=== PATIENT | male | born 2000 | race Caucasian/White ===

== ENCOUNTER 2022-11-18 11:32 | Outpatient (CLI) | payer OTHER, SELFPAY ==
--- NOTE | ~2022-11-18 | XR_ITS ---
AP and oblique views of the SI joints CLINICAL HISTORY: Pain FINDINGS: Bilateral SI joints are unremarkable. Bilateral hip joints appear unremarkable. No erosive change. Focal sclerotic lesion in the left iliac bone adjacent to the SI joint probably represents yg ne island. Soft tissues are unremarkable. IMPRESSION: Probable prominent bone island versus other densely sclerotic lesion in the left iliac bone adjacent to the SI joint. No other significant findings. Reviewed, dictated and finalized at location M. IMPRESSION: Probable prominent bone island versus other densely sclerotic lesion in the lef t iliac bone adjacent to the SI joint. No other significant findings.
--- NOTE | ~2022-11-18 | XR_ITS ---
Right foot Technique: AP and lateral standing views were obtained. Clinical History: Pain Findings: No acute fracture or dislocation is seen. Osseous alignment is anatomic. Joint spaces are p reserved without erosive or degenerative change. Soft tissues are unremarkable. Impression: Unremarkable right foot radiographs. Reviewed, dictated and finalized at location . Impression: Unremarkable right foot radiographs.
--- NOTE | ~2022-11-18 | XR_ITS ---
Bilateral Hands Technique: Bilaterally PA, oblique, and lateral views, and ball-catcher's view were obtained. Clinical History: Pain Findings: No acute fracture or dislocation is seen. Osseous alignment is anatomic. Joint spaces are p reserved. Soft tissues are unremarkable. Impression: Unremarkable bilateral hand radiographs. Reviewed, dictated and finalized at location . Impression: Unremarkable bilateral hand radiographs.
--- NOTE | ~2022-11-18 | XR_ITS ---
Cervical Spine: AP, lateral, open-mouth views Clinical History: Pain Findings: There is minimal reversal of the normal cervical lordosis. The vertebral bodies and fur trimmer ior elements appear intact. The intervertebral disc spaces are well maintained. Pre-vertebral soft t issues are unremarkable. Impression: Minimal reversal of the normal cervical lordosis, otherwise unremarkable exam. Reviewed, dictated and finalized at [facility]. Impression: Minimal reversal of the normal cervical lordosis, otherwise unremarkable exam.
--- NOTE | ~2022-11-18 | XR_ITS ---
Left foot Technique: AP and lateral standing views were obtained. Clinical History: Pain Findings: No acute fracture or dislocation is seen. Osseous alignment is anatomic. Joint spaces are p reserved without erosive or degenerative change. Soft tissues are unremarkable. Impression: Unremarkable left foot radiographs. Reviewed, dictated and finalized at location . Impression: Unremarkable left foot radiographs.
== END 2022-11-18 11:33 | disposition home or self-care (01) ==
PROVIDERS: PCP Family Medicine; Visit Provider Internal Medicine
DX: M25.50 Pain in unspecified joint (principal)
CPT/HCPCS: 72050; 72202; 73130; 73620